=== PATIENT | female | born 1990 | race Caucasian/White ===

== ENCOUNTER 2017-04-05 18:06 | Emergency (ER) | payer OTHER ==
[2017-04-05] MEDS ORDERED: LORAZEPAM 1 MG TABLET PO ONE (19:06)
--- NOTE | 2017-04-05 19:15 | ER Document Report ---
ED Medical Screen (RME) - General Chief Complaint: Suicidal Ideation Stated Complaint: PSYCH EVAL Time Seen by Provider: 04/05/17 19:05 Mode of Arrival: Ambulatory Information source: Patient Notes: Patient is a 26 year old female with a history of SI and suicide attempts presents to the emergency department after attempting suicide. Patient states she tried to hang herself with a belt in her closet. Patient states she feels like "her existence is nothing" and that her "daughter would be better off without her". Patient states she tried to commit suicide 3 year ago in [place] via prescription drug overdose. I have greeted and performed a rapid initial assessment of this patient. A comprehensive ED assessment and evaluation of the patient, analysis of test results and completion of the medical decision making process will be conducted by additional ED providers. TRAVEL OUTSIDE OF THE [place] IN LAST 30 DAYS: No - Related Data Allergies/Adverse Reactions: No Known Allergies Allergy (Unverified 04/05/17 18:09) Past Medical History - Social History Chew tobacco use (# tins/day): No Frequency of alcohol use: Social Drug Abuse: None Renal/ Medical History: Denies: Hx Peritoneal Dialysis Physical Exam - Vital signs Vitals: Temp Pulse Resp BP Pulse Ox 98.5 F 97 20 119/76 96 04/05/17 18:16 04/05/17 18:16 04/05/17 18:16 04/05/17 18:16 04/05/17 18:16 - General General appearance: Alert, Other - tearful during inital assesment - Respiratory Respiratory status: No respiratory distress - Psychological Associated symptoms: Tearful Course - Vital Signs Vital signs: Temp Pulse Resp BP Pulse Ox 98.5 F 97 20 119/76 96 04/05/17 18:16 04/05/17 18:16 04/05/17 18:16 04/05/17 18:16 04/05/17 18:16 - Laboratory Result Diagrams: 04/05/17 19:20 04/05/17 19:20 Scribe Documentation - Scribe Written by Phylicia:: Phylicia Osman, 04/05/2017 19:15 acting as scribe for :: Law
[2017-04-05 19:40] LABS: ABSOLUTE BASOPHILS # (AUTO) 0.1 10^3/uL (0.0-0.2); ABSOLUTE EOSINOPHILS # (AUTO) 0.1 10^3/uL (0.0-0.6); ABSOLUTE LYMPHOCYTES (AUTO) 2.6 10^3/uL (0.5-4.7); ABSOLUTE MONOCYTES (AUTO) 0.6 10^3/uL (0.1-1.4); ABSOLUTE NEUT (AUTO) 3.2 10^3/uL (1.7-8.2); BASOPHILS % (AUTO) 0.8 % (0-2); HEMOGLOBIN 14.8 g/dL (12.0-15.5); LYMPHOCYTES % (AUTO) 39.6 % (13-45); MEAN CORPUSCULAR HEMOGLOBIN 32.7 pg (27.0-33.4); MEAN CORPUSCULAR HGB CONC 34.5 g/dL (32.0-36.0); MEAN CORPUSCULAR VOLUME 95 fl (80-97); MONOCYTES % (AUTO) 9.3 % (3-13); PLATELET COUNT 290 10^3/uL (150-450); RED BLOOD COUNT 4.54 10^6/uL (3.72-5.28); RED CELL DISTRIBUTION WIDTH 13.6 % (11.5-14.0); SEGMENTED NEUTROPHILS % (AUTO) 49.3 % (42-78); TOTAL CELLS COUNTED % (AUTO) 100 %; WHITE BLOOD COUNT 6.5 10^3/uL (4.0-10.5)
[2017-04-05 20:07] LABS: ALANINE AMINOTRANSFERASE 61 U/L (9-52); ALBUMIN 5.1 g/dL (3.5-5.0); ALCOHOL 289 mg/dL (NONE DETECTED); ALKALINE PHOSPHATASE 54 U/L (38-126); ANION GAP 19 (5-19); ASPARTATE AMINO TRANSFERASE 59 U/L (14-36); BILIRUBIN,DIRECT 0.3 mg/dL (0.0-0.4); BILIRUBIN,TOTAL 0.4 mg/dL (0.2-1.3); BLOOD UREA NITROGEN 9 mg/dL (7-20); CALCIUM 10.1 mg/dL (8.4-10.2); CARBON DIOXIDE 23 mmol/L (22-30); CHLORIDE 104 mmol/L (98-107); GLUCOSE 99 mg/dL (75-110); POTASSIUM 4.3 mmol/L (3.6-5.0); SODIUM 146.2 mmol/L (137-145); TOTAL PROTEIN 8.2 g/dL (6.3-8.2)
[2017-04-05 20:08] LABS: ACETAMINOPHEN < 10 ug/mL (10-30); SALICYLATE < 1.0 mg/dL (2.0-20.0)
--- NOTE | 2017-04-05 20:22 | ER Document Report ---
ED Psych Disorder / Suicide - General Chief Complaint: Suicidal Ideation Stated Complaint: PSYCH EVAL Time Seen by Provider: 04/05/17 19:05 Mode of Arrival: Ambulatory Notes: Patient is a 26 year old female with a history of SI and suicide attempts presents to the emergency department after attempting suicide. Patient states she tried to hang herself with a belt in her closet. Patient states she feels like "her existence is nothing" and that her "daughter would be better off without her". Patient states she tried to commit suicide 3 year ago in [place] via prescription drug overdose. Denies taking anything tonight patient sees a counselor but she is not on any prescription medications. TRAVEL OUTSIDE OF THE [place] IN LAST 30 DAYS: No - HPI Patient complains to provider of: Suicidal attempt Onset: This afternoon Quality of pain: No pain Suicide Risk Factors: Depressed, Frightened friends/family Suicide Attempt Method: Hanging - Related Data Allergies/Adverse Reactions: No Known Allergies Allergy (Unverified 04/05/17 18:09) Past Medical History - General Information source: Patient - Social History Smoking Status: Never Smoker Chew tobacco use (# tins/day): No Frequency of alcohol use: Social Drug Abuse: None Family History: Reviewed & Not Pertinent Patient has suicidal ideation: Yes Patient has homicidal ideation: No Renal/ Medical History: Denies: Hx Peritoneal Dialysis Psychiatric Medical History: Reports: Hx Depression Surgical Hx: Negative Review of Systems - Review of Systems Constitutional: No symptoms reported EENT: No symptoms reported Cardiovascular: No symptoms reported Respiratory: No symptoms reported Gastrointestinal: No symptoms reported Genitourinary: No symptoms reported Female Genitourinary: No symptoms reported Musculoskeletal: No symptoms reported Skin: No symptoms reported Hematologic/Lymphatic: No symptoms reported Neurological/Psychological: See HPI Physical Exam - Vital signs Vitals: Temp Pulse Resp BP Pulse Ox 98.5 F 97 20 119/76 96 04/05/17 18:16 04/05/17 18:16 04/05/17 18:16 04/05/17 18:16 04/05/17 18:16 Interpretation: Normal - General General appearance: Appears well, Alert - HEENT Head: Normocephalic, Atraumatic Eyes: Normal Pupils: PERRL Neck: Normal, Other - no TTP or ecchymosis - Respiratory Respiratory status: No respiratory distress Chest status: Nontender Breath sounds: Normal Chest palpation: Normal - Cardiovascular Rhythm: Regular Heart sounds: Normal auscultation Murmur: No - Abdominal Inspection: Normal Distension: No distension Bowel sounds: Normal Tenderness: Nontender Organomegaly: No organomegaly - Back Back: Normal, Nontender - Extremities General upper extremity: Normal inspection, Nontender, Normal color, Normal ROM , Normal temperature General lower extremity: Normal inspection, Nontender, Normal color, Normal ROM , Normal temperature, Normal weight bearing. No: Noa's sign - Neurological Neuro grossly intact: Yes Cognition: Normal Orientation: AAOx4 [place] Coma Scale Eye Opening: Spontaneous [place] Coma Scale Verbal: Oriented Jose David Coma Scale Motor: Obeys Commands Jose David Coma Scale Total: 15 Speech: Normal Motor strength normal: LUE, RUE, LLE, RLE Sensory: Normal - Psychological Associated symptoms: Tearful, Other - suicidal ideation - Skin Skin Temperature: Warm Skin Moisture: Dry Skin Color: Normal Course - Re-evaluation Re-evalutation: 04/05/17 20:24 Patient comes in with suicidal ideation and plan. Attempted hanging today. No physical findings on exam. Medically stable. Patient's blood work within normal limits except for elevated alcohol. Patient was very anxious in triage and was given Ativan. She is currently asleep and can be evaluated by mental health in the morning. She has been placed on involuntary commitment paperwork. Patient and are aware of this plan. - Vital Signs Vital signs: Temp Pulse Resp BP Pulse Ox 98.5 F 97 20 119/76 96 04/05/17 18:16 04/05/17 18:16 04/05/17 18:16 04/05/17 18:16 04/05/17 18:16 - Laboratory Result Diagrams: 04/05/17 19:20 04/05/17 19:20 Laboratory results interpreted by me: 04/05/17 19:20 Sodium 146.2 H AST 59 H ALT 61 H Albumin 5.1 H Salicylates < 1.0 L Acetaminophen < 10 L Discharge - Discharge Clinical Impression: Suicidal ideation Depression Qualifiers: Depression Type: unspecified Qualified Code(s): F32.9 - Major depressive disorder, single episode, unspecified Condition: Stable Disposition: PSYCH HOSP/UNIT
[2017-04-05 21:37] LABS: APPEARANCE,URINE CLEAR; BILIRUBIN,URINE NEGATIVE (NEGATIVE); COLOR,URINE YELLOW; GLUCOSE, URINE NEGATIVE (NEGATIVE); KETONES,URINE TRACE mg/dL (NEGATIVE); LEUKOCYTE ESTERASE,URINE NEGATIVE (NEGATIVE); NITRITE,URINE NEGATIVE (NEGATIVE); PROTEIN,URINE NEGATIVE (NEGATIVE); URINE SPECIFIC GRAVITY 1.016; UROBILINOGEN,URINE NEGATIVE mg/dL (<2.0)
[2017-04-05 21:59] LABS: URINE AMPHETAMINES SCREEN NEGATIVE; URINE BARBITURATES SCREEN NEGATIVE; URINE BENZODIAZEPINES SCREEN NEGATIVE; URINE COCAINE SCREEN NEGATIVE; URINE MARIJUANA (THC) SCREEN NEGATIVE; URINE METHADONE SCREEN NEGATIVE; URINE PHENCYCLIDINE SCREEN NEGATIVE
[2017-04-06] MEDS ORDERED: TRAZODONE HCL 50 MG TABLET PO ONE (02:00)
[2017-04-06] MEDS ORDERED: ONDANSETRON 4 MG TAB.RAPDIS PO ONE (07:36)
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
[2017-04-06] MEDS ORDERED: LORAZEPAM 1 MG TABLET PO ONE ×2 (13:17→15:01)
[2017-04-06] MEDS ORDERED: LORAZEPAM 1 MG TABLET ONE (13:20)
[2017-04-06 15:28] VITALS: BP 113/72
--- NOTE | 2017-04-07 11:04 | EKG REPORT ---
SEVERITY:- NORMAL ECG - SINUS RHYTHM : Confirmed by: Heather Lemus MD 07-Apr-2017 11:04:00
== END 2017-04-06 15:42 ==
LOC: ER 18:06
DX: T14.91XA Suicide attempt, initial encounter (principal); X83.8XXA Intentional self-harm by other specified means, initial encounter; F32.9 Major depressive disorder, single episode, unspecified; F41.9 Anxiety disorder, unspecified
CPT/HCPCS: 93005; 99285; 36415; 80307 ×4; 84703; 85025; 80053; 81001; 93010; S0119

== ENCOUNTER → 2019-05-14 | Outpatient (CLI) | payer OTHER ==
--- NOTE | 2019-05-14 12:58 | RADIOLOGY REPORT (SQ) ---
EXAM DESCRIPTION: FOOT LEFT COMPLETE COMPLETED DATE/TIME: 05/14/2019 11:29 am REASON FOR STUDY: UNSPECIFIED INJURY OF LEFT FOOT, INITIAL ENCOUNTER S99.922A UNSPECIFIED INJURY OF LEFT FOOT, INITIAL ENCOUNTER COMPARISON: None. NUMBER OF VIEWS: Three views. TECHNIQUE: AP, lateral and oblique radiographic images acquired of the left foot. LIMITATIONS: None. FINDINGS: MINERALIZATION: Normal. BONES: No acute fracture or dislocation. No worrisome bone lesions. JOINTS: No effusions. SOFT TISSUES: No soft tissue swelling. No foreign body. OTHER: No other significant finding. IMPRESSION: NEGATIVE STUDY OF THE LEFT FOOT. NO RADIOGRAPHIC EVIDENCE OF ACUTE INJURY. TECHNICAL DOCUMENTATION: JOB ID: [id number] [employer]- All Rights Reserved Reading location - IP/workstation name: [email or web address]
== END ==
LOC: OD 11:17
PROVIDERS: ATTEND Physician Assistant
DX: S99.922A Unspecified injury of left foot, initial encounter (principal); X58.XXXA Exposure to other specified factors, initial encounter